=== PATIENT | female | born 1995 ===

== ENCOUNTER → 2024-05-16 07:53 | Outpatient (REF) | payer OTHER, SELFPAY | LOC: RAD 07:53 | PROVIDERS: ATTENDING PHYSICIAN Obstetrics & Gynecology; FAMILY PHYSICIAN Family Medicine | DX: Z34.90 Encounter for supervision of normal pregnancy, unspecified, unspecified trimester (principal) | CPT/HCPCS: 76801; 76817 ==

== ENCOUNTER 2024-05-22 06:22 | Day surgery (SDC) | payer OTHER, SELFPAY ==
[2024-05-22] VITALS (8 sets, daily range): BP systolic 95–119; BP diastolic 62–72; BMI 25.7
[2024-05-22] MEDS: TYLENOL 1000 MG PO (12:48)
[2024-05-22] MEDS: NORMOSOL-R 1000 IV (12:49)
[2024-05-22] MEDS: VIBRAMYCIN 260 MG IV (14:06)
== END 2024-05-22 16:02 | disposition home or self-care (01) ==
LOC: SDS 06:22
PROVIDERS: ATTENDING PHYSICIAN Obstetrics & Gynecology
DX: O02.1 Missed abortion (principal)
CPT/HCPCS: 59820; 88305